=== PATIENT | male | born 1970 | race Two or more races ===

== ENCOUNTER 2017-10-26 08:48 | Emergency (ER) | payer BC ==
[2017-10-26] MEDS: Metoprolol Tartrate 50 MG Tab PO ONE (09:13)
[2017-10-26] MEDS: Aspirin 81 MG Tab.Chew PO ONE (09:14)
[2017-10-26] MEDS: Sodium Chloride 0.9% 10 ML Syringe FLUSH PRN (09:14)
--- NOTE | 2017-10-26 10:09 | CR ---
Chest: Portable view of the chest was obtained. Comparison: No prior study. Heart size and mediastinum are within normal limits for portable technique. Lungs are clear. Bony structures are grossly intact. Impression: 1. Nothing acute is identified on portable chest x-ray. Diagnostic code #1
--- NOTE | 2017-10-26 12:12 | EDM.PDOC ---
ED HPI GENERAL MEDICAL PROBLEM - General Chief Complaint: Chest Pain Stated Complaint: CHEST PAIN Time Seen by Provider: 10/26/17 08:55 Source of Information: Reports: Patient, RN Notes Reviewed (Friend), Other - History of Present Illness INITIAL COMMENTS - FREE TEXT/NARRATIVE: 47-year-old male has been brought in by a friend for evaluation of chest discomfort. He awakened with chest discomfort during the night for a few hours ago and then did start having more discomfort later this morning. Chest pain now is gone. He has had some hypertension in the past, not currently on medication for that. No known history for coronary artery disease or diabetes. Was previously on lisinopril. Does not smoke. - Related Data Allergies Allergy/AdvReac Type Severity Reaction Status Date / Time No Known Allergies Allergy Verified 10/26/17 08:54 Home Meds: Home Meds . [No Known Home Meds] 10/26/17 [History] Past Medical History Cardiovascular History: Reports: Hypertension Social & Family History - Tobacco Use Smoking Status *Q: Never Smoker - Caffeine Use Caffeine Use: Reports: Coffee ED ROS GENERAL - Review of Systems Review Of Systems: See Below Constitutional: Denies: Fever, Chills, Diaphoresis HEENT: Denies: Sinus Problem, Throat Pain Respiratory: Denies: Shortness of Breath, Cough Cardiovascular: Reports: Chest Pain (gone). Denies: Dyspnea on Exertion, Lightheadedness, Palpitations GI/Abdominal: Denies: Abdominal Pain, Diarrhea, Nausea, Vomiting Musculoskeletal: Denies: Neck Pain, Shoulder Pain, Arm Pain Skin: Reports: No Symptoms Neurological: Denies: Numbness, Tingling, Trouble Speaking, Difficulty Walking ED EXAM, GENERAL - Physical Exam Exam: See Below Exam Limited By: Language Barrier (patient seens to understand some austrian, does not speak Portuguese. Has a friend interpreting) General Appearance: Alert, No Apparent Distress Eye Exam: Bilateral Eye: PERRL Ears: Normal External Exam Nose: Normal Inspection Throat/Mouth: Normal Inspection Head: Atraumatic. No: Facial Swelling Neck: Supple, Full Range of Motion Respiratory/Chest: No Respiratory Distress, Lungs Clear, Normal Breath Sounds, Other (mild tenderness L sternal border) Cardiovascular: Regular Rate, Rhythm GI/Abdominal: Soft, Non-Tender Back Exam: No: CVA Tenderness (L), CVA Tenderness (R) Extremities: Normal Inspection, Normal Range of Motion Neurological: Alert, Oriented, No Motor/Sensory Deficits Skin Exam: Warm, Dry, Normal Color, No Rash EKG INTERPRETATION EKG Date: 10/26/17 Rhythm: NSR [place]: Normal P-Wave: Present QRS: Normal ST-T: Normal Course - Vital Signs Last Recorded V/S: Last Vital Signs Temp 98.4 F 10/26/17 08:54 Pulse 65 10/26/17 12:15 Resp 15 10/26/17 12:15 BP 118/89 10/26/17 12:15 Pulse Ox 97 10/26/17 12:15 - Orders/Labs/Meds Labs: Laboratory Tests 10/26/17 10/26/17 Range/Units 09:00 09:00 WBC 8.01 (4.23-9.07) K/mm3 RBC 5.67 (4.63-6.08) M/mm3 Hgb 17.2 (13.7-17.5) gm/L Hct 48.6 (40.1-51.0) % MCV 85.7 (79.0-92.2) fl MCH 30.3 (25.7-32.2) pg MCHC 35.4 (32.2-35.5) g/dl RDW Std Deviation 39.6 (35.1-43.9) fL Plt Count 310 (163-337) K/mm3 MPV 10.0 (9.4-12.3) fl Neutrophils % (Manual) 68 H (40-60) % Band Neutrophils % 0 (0-10) % Lymphocytes % (Manual) 28 (20-40) % Atypical Lymphs % 0 % Monocytes % (Manual) 3 (2-10) % Eosinophils % (Manual) 0 L (0.8-7.0) % Basophils % (Manual) 1 (0.2-1.2) Platelet Estimate Adequate RBC Morph Comment Normal Sodium 140 (136-145) mEq/L Potassium 4.2 (3.5-5.1) mEq/L Chloride 103 (98-107) mEq/L Carbon Dioxide 24 (21-32) mEq/L Anion Gap 17.2 H (5-15) BUN 13 (7-18) mg/dL Creatinine 1.1 (0.7-1.3) mg/dL Est Cr Clr Drug Dosing 92.10 mL/min Estimated GFR (MDRD) > 60 (>60) mL/min BUN/Creatinine Ratio 11.8 L (14-18) Glucose 115 H (74-106) mg/dL Calcium 9.0 (8.5-10.1) mg/dL Total Bilirubin 0.7 (0.2-1.0) mg/dL AST 19 (15-37) U/L ALT 36 (16-63) U/L Alkaline Phosphatase 87 (46-116) U/L Troponin I < 0.017 (0.00-0.056) ng/mL Total Protein 8.3 H (6.4-8.2) g/dl Albumin 4.1 (3.4-5.0) g/dl Globulin 4.2 gm/dL Albumin/Globulin Ratio 1.0 (1-2) Meds: Medications Discontinued Medications Generic Name Dose Route Start Last Admin Trade Name Freq PRN Reason Stop Dose Admin Aspirin 324 mg 10/26/17 09:06 10/26/17 09:14 Aspirin PO 10/26/17 09:07 324 mg ONETIME ONE Administration Metoprolol Tartrate 50 mg 10/26/17 09:06 10/26/17 09:13 Lopressor PO 10/26/17 09:07 50 mg ONETIME ONE Administration Sodium Chloride 10 ml 10/26/17 09:00 10/26/17 09:14 Saline Flush FLUSH 10 ml ASDIRECTED PRN Administration Keep Vein Open - Re-Assessments/Exams Free Text/Narrative Re-Assessment/Exam: 10/27/17 13:55 labs including trop. came back normal. CXR normal. EKG normal. Discharge instr. as documented. Departure - Departure Time of Disposition: 12:20 Disposition: Home, Self-Care 01 Condition: Fair Clinical Impression: Atypical chest pain Hypertension Qualifiers: Hypertension type: essential hypertension Qualified Code(s): I10 - Essential ( primary) hypertension Instructions: Nonspecific Chest Pain, [id number], Hypertension, [id number] Referrals: PCP,Not In Area [Primary Care Provider] - Forms: ED Department Discharge Additional Instructions: Your heart and lungs of checked out well today, start back on the lisinopril 20 mg daily as previously prescribed, Follow up at our [facility] medical clinic next week, call [phone] to see provider for general physical, further evaluation and treatment as needed. Return to ED as needed if symptoms worsening in any way
== END 2017-10-26 12:27 | disposition home or self-care (01) ==
LOC: JD.ED 08:48
DX: R07.89 Other chest pain (principal); I10 Essential (primary) hypertension
CPT/HCPCS: 36415; 71045; 80053; 84484; 85025; 93005; 99285; A9270; J7050